=== PATIENT | female | born 1985 | race Caucasian/White ===

== ENCOUNTER 2019-01-02 11:36 | Inpatient (IN) | payer MEDICAID ==
[~2019-01-02] VITALS: Ht 154.9 cm; Wt 74.4 kg
[~2019-01-02 11:36] MED LIST: PREN-96 PO
[2019-01-02] MEDS ORDERED: LACT. RINGERS/OXYTOCIN 20UNITS 1,000 ML IV SCH (12:08)
[2019-01-02] MEDS ORDERED: LACTATED RINGER'S 1,000 ML IV SCH (12:08)
[2019-01-02] MEDS ORDERED: PHISODERM TOP SOLN 240ML BTL TOP PRN (12:15)
[2019-01-02] MEDS ORDERED: WITCH HAZEL-GLYCERIN PAD TOP PRN (12:15)
[2019-01-02] MEDS ORDERED: NALBUPHINE HCL 10 MG/1ml INJECTION IV PRN (12:15)
[2019-01-02] MEDS ORDERED: LIDOCAINE 2%HCL (LOCAL ANESTH.) INJ 20ML MDV ID ONE (12:15)
[2019-01-02] MEDS ORDERED: DERMOPLAST 60ML BOTTLE TOP PRN (12:15)
[2019-01-02] MEDS ORDERED: LACT. RINGERS/OXYTOCIN 20UNITS 1,000 ML IV ONE (12:17)
[2019-01-02 13:04] LABS: Urine WBC None Seen /hpf (0 - 5)
[2019-01-02 13:07] LABS: Basophils # (auto) 0 uL; Basophils % (auto) 0.2 % (0.0-2.0); Eosinophils # (auto) 0 uL; Eosinophils % (auto) 0.1 % (0.0-7.0); Hematocrit 37.3 % (36.0-46.0); Hemoglobin 12.5 g/dL (12.2-16.2); Lymphocytes # (auto) 1.6 uL; Mean Corpuscular Hemoglobin 30.3 pg (28.0-32.0); Mean Corpuscular Hgb Conc. 33.5 g/dL (32.0-36.0); Mean Corpuscular Volume 90.3 fL (80.0-100.0); Monocytes # (auto) 0.6 uL; Monocytes % (auto) 4.4 % (0.0-12.0); Neutrophils # (auto) 11.1 uL; Neutrophils % (auto) 83.3 % (37.0-80.0); Platelet Count (auto) 158 10^3/uL (140-450); Red Blood Cells 4.13 10^6/uL (4.0-5.20); Red Cell Distribution Width 14.2 % (11.8-14.3); White Blood Cell 13.3 10^3/uL (4.4-10.8)
[2019-01-02] MEDS ORDERED: LIDOCAINE HCL 2 %PF INJ 10ML AMP IJ ONE (13:30)
[2019-01-02] MEDS ORDERED: fentaNYL CITRATE 100 MCG/2 ML VL IV ONE (13:30)
[2019-01-02] MEDS ORDERED: ePHEDrine SULFATE 50 MG/ML AMP IV ONE ×2 (13:30→15:15)
[2019-01-02] MEDS ORDERED: fentaNYL W ROPIVACAINE 150 ML EPI SCH ×2 (13:30→15:15)
[2019-01-02] MEDS ORDERED: LIDOCAINE W/ EPINEPHRINE 1 % INJ 30ML IJ ONE ×2 (13:30→15:15)
[2019-01-02] MEDS ORDERED: NALOXONE HCL 0.4 MG/ML VIAL IV ONE ×2 (13:30→15:15)
[2019-01-02 13:31] LABS: Albumin 2.7 g/dL (3.4-5.0); Calcium 8.5 mg/dL (8.5-10.1)
[2019-01-02 13:32] LABS: INR < 0.93 (0.9-1.15); Partial Thromboplastin Time 26.9 sec (23.64-32.05)
[2019-01-02 13:34] LABS: Bilirubin, Total 0.5 mg/dL (0.2-1.0); Total Protein 6.4 g/dL (6.4-8.2)
[2019-01-02 13:42] LABS: Urine Bacteria NONE SEEN /hpf (None Seen); Urine Blood Negative /uL (Negative)
[2019-01-02] MEDS ORDERED: LACTATED RINGER'S 500 ML IV ONE (15:02)
[2019-01-02] MEDS ORDERED: SODIUM CHLORIDE 0.9% 500 ML IV PRN (15:02)
[2019-01-02] MEDS ORDERED: IBUPROFEN 600 MG TAB PO PRN (17:00)
[2019-01-02] MEDS ORDERED: ACETAMINOPHEN 325 MG TAB PO PRN (17:00)
--- NOTE | 2019-01-02 18:45 | NUR ---
Ambulation: Patient OOB with standby assistance by RN. Patient ambulated to bathroom with steady gait. Patient able to void without difficulty. Pericare teaching provided with returned demonstration by patient. Clean gown provided and bed linen changed. Patient ambulated back to bed with steady gait and no distress noted.
[2019-01-02 22:54] VITALS: BP 100/54
--- NOTE | 2019-01-03 01:15 | NUR ---
IV removal IV DC'd with sterile technique, catheter fully intact. Pressure dressing applied to site. Patient tolerated procedure well. Discharged IV per Vanessa CEDILLO's orders.
[2019-01-03] MEDS ORDERED: TETANUS-DIPTH-ACEL PERTUSSIS 0.5ML SYRG IM ONE (02:15)
[2019-01-03 03:00] VITALS: BP 98/55
[2019-01-03 07:00] VITALS: BP 102/59
[2019-01-03 11:10] VITALS: BP 110/52
[2019-01-03 15:15] VITALS: BP 114/56
--- NOTE | 2019-01-03 16:00 | NUR ---
Discharge: Discharge instructions given as ordered. Pt encouraged to follow up with [facility] ADMINISTRATOR as instructed. All questions and concerns addressed. Patient verbalized understanding. Medication reconciliation completed and copy given to patient. All required/requested vaccines given and copies of vaccinations given to patient. Patient encouraged to prepare to depart unit.
[2019-01-03 19:10] VITALS: BP 112/62
--- NOTE | 2019-01-03 19:10 | NUR ---
Discharge: Patient ambulates to car with stable gait upon and denies wheelchair with all personal belongings, accompanied by staff and family member. No distress noted at time of departure, no adverse changes in status since initial assessment.
[2019-01-03 19:40] LABS: RPR Non Reactive (Non Reactive)
== END 2019-01-03 19:10 | disposition home or self-care (01) | DRG 560 ==
LOC: OBSVTOIN 11:36 → LDRP 11:36
PROVIDERS: ADMIT Specialist; ATTEND Specialist
PROC: 10E0XZZ Delivery of Products of Conception, External Approach (ICD-10-PCS; principal; 2019-01-02)
DX: O80 Encounter for full-term uncomplicated delivery (principal); Z37.0 Single live birth; Z3A.39 39 weeks gestation of pregnancy
CPT/HCPCS: 36415; 51702; 59025; 59409; 80053; 81001; 84112; 85025; 85610; 85730; 86592; 86850; 86900; 86901; 90715; 96372; G0378; J2590; J3010

== ENCOUNTER 2019-02-22 06:26 | Day surgery (SDC) | payer MEDICAID ==
[~2019-02-22] VITALS: Ht 152.4 cm; Wt 63.5 kg
[2019-02-22] MEDS ORDERED: ceFAZolin 1GM/50ML 50 ML IV ONE (06:38)
[2019-02-22] MEDS ORDERED: fentaNYL CITRATE 100 MCG/2 ML VL ONE (07:32)
[2019-02-22] MEDS ORDERED: MIDAZOLAM HCL 1MG/1ML-2 ML VIAL ONE (07:32)
[2019-02-22] MEDS ORDERED: MEPERIDINE HCL (25 MG/ML) 1ML VIAL ONE (07:32)
[2019-02-22] MEDS ORDERED: DexAMETHasone SOD PHOS 10MG/1ML VIAL INJ ONE (07:39)
[2019-02-22] MEDS ORDERED: PROPOFOL 10 MG/ML 20 ML IV ONE (07:51)
[2019-02-22] MEDS ORDERED: ONDANSETRON HCL 4 MG/2 ML VIAL ONE (08:11)
[2019-02-22] MEDS ORDERED: KETOROLAC TROMETH 30 MG/ML 1ML VIAL ONE (08:11)
[2019-02-22] MEDS ORDERED: NEOSTIGMINE 1 MG/ML INJ (10mg/10ML VIAL) ONE (08:14)
[2019-02-22] MEDS ORDERED: GLYCOPYRROLATE 0.2 MG/ML 1ML VIAL ONE (08:15)
[2019-02-22] MEDS ORDERED: MIDAZOLAM HCL 1MG/1ML-2 ML VIAL IV PRN (08:15)
[2019-02-22] MEDS ORDERED: LABETALOL HCL 5 MG/ML 4ML SYRINGE IV PRN (08:15)
[2019-02-22] MEDS ORDERED: KETOROLAC TROMETH 15 mg/ml 1ML VL IV ONE (08:15)
[2019-02-22] MEDS ORDERED: ONDANSETRON HCL 4 MG/2 ML VIAL IV ONE (08:15)
[2019-02-22] MEDS ORDERED: ePHEDrine SULFATE 50 MG/ML AMP IV PRN (08:15)
[2019-02-22] MEDS ORDERED: LACTATED RINGER'S 1,000 ML IV SCH (08:26)
[2019-02-22] MEDS ORDERED: ONDANSETRON HCL 4 MG/2 ML VIAL IV PRN (08:30)
[2019-02-22] MEDS: HYDROmorphone HCL 2 MG/ML VL IV PRN ×2 (08:49→09:26)
[2019-02-22] MEDS ORDERED: MORPHINE SULFATE 4 MG/ML SYR/VIAL IV ONE (10:00)
[2019-02-22] MEDS ORDERED: METOCLOPRAMIDE HCL 5MG/ml INJ 2ml VIAL IV ONE (10:45)
[2019-02-22 11:49] VITALS: BP 90/56
[2019-02-22] MEDS ORDERED: PHENYLEPHRINE HCL 10 MG/ML VL IV ONE (12:45)
== END 2019-02-22 11:59 | disposition home or self-care (01) ==
LOC: SUR 06:26
PROVIDERS: ATTEND Obstetrics & Gynecology
DX: Z30.2 Encounter for sterilization (principal); I10 Essential (primary) hypertension; Z90.49 Acquired absence of other specified parts of digestive tract; Z79.899 Other long term (current) drug therapy; Z98.890 Other specified postprocedural states
CPT/HCPCS: 58671; J0690; J1100; J1170; J1885; J2175; J2250; J2370; J2405; J2704; J2765; J3010